=== PATIENT | male | born 1950 | race Caucasian/White ===

== ENCOUNTER → 2016-12-23 | Outpatient (CLI) | payer OTHER ==
[~2016-12-23] MED LIST: ACETAMINOPHEN W1 TA6 PO; ALBUTEROL S0.4 MG/ML PO; ASPIR-LOW81 MG PO; ASPIRIN E.C. 8181 MG PO; CALCITRATE 3151 TAB PO; DAYPRO 600600 MG PO; DAZIDOX10 MG PO; DEMADEX10 MG PO; DRISDOL50000 IU PO; FERROUS SU325 MG/TAB PO; FOLIC ACID PO; GLUCOSAMINE/CHONDROI PO; HCTZ PO; HYDROMORPHONE HC2 MG PO; HYSINGLA60 PO; KLOR-CON 1010 MEQ PO; LASIX 20MG TABL20 MG PO; LASIX 40MG TABL40 MG PO; LASIX 80MG TABL80 MG PO; LEVAQUIN; LEXAPRO 10MG10 MG PO; LOPRESSOR 225 MG/TAB PO; LOTRISONE 0.05%1 CRE TOP; METHADONE H10 MG/TAB PO; MOBIC15 MG PO; MVI PO; NASACORT AQ N16.5 GM NS; PERCOCET 325 MG1 TA3 PO; PERCR 7.5 PO; PHENERGAN 25 TA25 MG PO; PHILLIPS'311 MG PO; PREVACID 15MG15 M1 PO; PRIL40 PO; PROAIR HFA0.09 MG/AC IH; SUDAFED 12HR120 MG PO; SYNTHROID 0.0.025 MG PO; TYLENOL W/COD1 UDTAB PO; ULTRAM 50MG TAB50 MG PO; VITAMIN C500 MG PO; ZANTAC 150MG T150 MG PO; ZAROXOLYN 2.52.5 MG PO; ZAROXOLYN5 MG PO; ZYLOPRIM 300MG300 MG PO
== END ==
LOC: COL.PUL 08:00
DX: R06.02 Shortness of breath (principal); I34.0 Nonrheumatic mitral (valve) insufficiency; R94.39 Abnormal result of other cardiovascular function study

== ENCOUNTER 2017-01-08 19:16 | Inpatient (IN) | payer OTHER ==
[~2017-01-08] VITALS: Ht 185.4 cm; Wt 116.8 kg
[2017-01-08] VITALS (99 sets, daily range): BP systolic 121; BP diastolic 78; PULSE 95; TEMP 98.5; O2SAT 84–100
[~2017-01-08 19:16] MED LIST changes: -ALBUTEROL S0.4 MG/ML PO; -ASPIRIN E.C. 8181 MG PO; -CALCITRATE 3151 TAB PO; -DAYPRO 600600 MG PO; -DRISDOL50000 IU PO; -HYSINGLA60 PO; -LASIX 20MG TABL20 MG PO; -LASIX 40MG TABL40 MG PO; -LASIX 80MG TABL80 MG PO; -LEXAPRO 10MG10 MG PO; -LOPRESSOR 225 MG/TAB PO; -LOTRISONE 0.05%1 CRE TOP; -METHADONE H10 MG/TAB PO; -MOBIC15 MG PO; -PERCOCET 325 MG1 TA3 PO; -PHILLIPS'311 MG PO; -PREVACID 15MG15 M1 PO; -PRIL40 PO; -PROAIR HFA0.09 MG/AC IH; -SYNTHROID 0.0.025 MG PO; -ZANTAC 150MG T150 MG PO; -ZAROXOLYN 2.52.5 MG PO; -ZYLOPRIM 300MG300 MG PO
[2017-01-08 20:03] LABS: BASO % 0.3 % (0.0-2.0); EOS % 0.1 % (0-4.0); GRAN # 9.4 (1.4-6.5); GRAN % 79.4 % (42.2-75.2); LYMPH # 1.5 (1.2-3.4); LYMPH % 12.6 % (20.0-51.0); MEAN CELL VOLUME 90 fl (80.0-100.0); MEAN CORPUSCULAR HGB CONC 32 g/dl (33.0-37.0); MEAN PLATELET VOLUME 9.1 fl (7.4-10.4); MONO # 0.9 (0.1-0.6); MONO % 7.3 % (1.7-9.3); PLATELET COUNT 237 K/mm3 (130-400); RED BLOOD COUNT 3.26 M/mm3 (4.20-5.60); REDCELL DISTRIBUTION WIDTH-CV 16.7 % (11.5-14.5); WHITE BLOOD COUNT 11.8 K/mm3 (4.8-10.8)
[2017-01-08 20:10] LABS: HEMATOCRIT 29.2 % (42.0-52.0); HEMOGLOBIN 9.3 g/dl (13.5-18.0); MEAN CORPUSCULAR HEMOGLOBIN 29 pg (27.0-31.0)
[2017-01-08 20:15] LABS: ADJUSTED CALCIUM 9.3 mg/dL (8.4-10.2); ALBUMIN 3.4 gm/dL (3.5-5.0); BILIRUBIN,TOTAL 0.5 mg/dL (0.0-1.0); CALCIUM 8.8 mg/dL (8.4-10.2); CREATININE, serum 0.98 mg/dL (0.66-1.25); POTASSIUM 3.5 mmol/L (3.4-5.0)
[2017-01-08] MEDS ORDERED: ZYLOPRIM 300MG300 MG PO (22:23)
[2017-01-08] MEDS ORDERED: LEXAPRO 10MG10 MG PO (22:24)
[2017-01-08] MEDS ORDERED: DAYPRO 600600 MG PO (22:26)
[2017-01-08] MEDS ORDERED: LOTRISONE 0.05%1 CRE TOP (22:28)
[2017-01-08] MEDS ORDERED: DRISDOL50000 IU PO (22:29)
[2017-01-09] VITALS (589 sets, daily range): BP systolic 109–153; BP diastolic 68–86; PULSE 78–94; TEMP 97–98.5; O2SAT 46–100
[2017-01-09 00:10] LABS: HEMATOCRIT 25.5 % (42.0-52.0); HEMOGLOBIN 8.2 g/dl (13.5-18.0)
[2017-01-09 04:00] LABS: BASO % 0.3 % (0.0-2.0); EOS % 0.1 % (0-4.0); GRAN # 9.5 (1.4-6.5); GRAN % 80.9 % (42.2-75.2); LYMPH # 1.5 (1.2-3.4); LYMPH % 12.4 % (20.0-51.0); MEAN CELL VOLUME 89 fl (80.0-100.0); MEAN CORPUSCULAR HGB CONC 32 g/dl (33.0-37.0); MEAN PLATELET VOLUME 8.8 fl (7.4-10.4); MONO # 0.7 (0.1-0.6); MONO % 5.9 % (1.7-9.3); PLATELET COUNT 202 K/mm3 (130-400); RED BLOOD COUNT 2.75 M/mm3 (4.20-5.60); REDCELL DISTRIBUTION WIDTH-CV 16.7 % (11.5-14.5); WHITE BLOOD COUNT 11.7 K/mm3 (4.8-10.8)
[2017-01-09 04:01] LABS: HEMATOCRIT 24.4 % (42.0-52.0); HEMOGLOBIN 7.9 g/dl (13.5-18.0); MEAN CORPUSCULAR HEMOGLOBIN 29 pg (27.0-31.0)
[2017-01-09 04:11] LABS: CALCIUM 8.3 mg/dL (8.4-10.2); CREATININE, serum 0.97 mg/dL (0.66-1.25); POTASSIUM 3.5 mmol/L (3.4-5.0)
[2017-01-09 09:16] LABS: HEMATOCRIT 26.4 % (42.0-52.0); HEMOGLOBIN 8.4 g/dl (13.5-18.0)
[2017-01-09 14:09] LABS: HEMATOCRIT 24.1 % (42.0-52.0); HEMOGLOBIN 7.9 g/dl (13.5-18.0)
[2017-01-09 20:54] LABS: HEMATOCRIT 23.3 % (42.0-52.0); HEMOGLOBIN 7.4 g/dl (13.5-18.0)
[2017-01-10] VITALS (451 sets, daily range): BP systolic 107–145; BP diastolic 55–91; PULSE 75–92; TEMP 97–98.8; O2SAT 52–100
[2017-01-10 01:54] LABS: HEMATOCRIT 20.2 % (42.0-52.0)
[2017-01-10 01:55] LABS: HEMOGLOBIN 6.6 g/dl (13.5-18.0)
[2017-01-10 08:15] LABS: BASO % 0.6 % (0.0-2.0); EOS # 0.2 (0.0-0.7); EOS % 3.2 % (0-4.0); GRAN # 5.2 (1.4-6.5); LYMPH # 1.2 (1.2-3.4); LYMPH % 17.1 % (20.0-51.0); MEAN CELL VOLUME 90 fl (80.0-100.0); MEAN CORPUSCULAR HGB CONC 32 g/dl (33.0-37.0); MEAN PLATELET VOLUME 9.4 fl (7.4-10.4); MONO # 0.5 (0.1-0.6); MONO % 6.7 % (1.7-9.3); PLATELET COUNT 137 K/mm3 (130-400); RED BLOOD COUNT 2.66 M/mm3 (4.20-5.60); REDCELL DISTRIBUTION WIDTH-CV 16.3 % (11.5-14.5); WHITE BLOOD COUNT 7.3 K/mm3 (4.8-10.8)
[2017-01-10 08:24] LABS: ADJUSTED CALCIUM 8.6 mg/dL (8.4-10.2); ALBUMIN 2.9 gm/dL (3.5-5.0); BILIRUBIN,TOTAL 0.6 mg/dL (0.0-1.0); CALCIUM 7.7 mg/dL (8.4-10.2); CREATININE, serum 0.81 mg/dL (0.66-1.25); POTASSIUM 3.8 mmol/L (3.4-5.0); TOTAL PROTEIN 5.3 gm/dL (6.4-8.2)
[2017-01-10 08:27] LABS: HEMATOCRIT 23.8 % (42.0-52.0); HEMOGLOBIN 7.7 g/dl (13.5-18.0); MEAN CORPUSCULAR HEMOGLOBIN 29 pg (27.0-31.0)
[2017-01-10 14:37] LABS: HEMATOCRIT 18.2 % (42.0-52.0)
[2017-01-11] VITALS (720 sets, daily range): BP systolic 122–141; BP diastolic 66–87; PULSE 74–83; TEMP 97.8–98.2; O2SAT 53–100
[2017-01-11 00:02] LABS: HEMATOCRIT 26.7 % (42.0-52.0); HEMOGLOBIN 8.6 g/dl (13.5-18.0)
[2017-01-11 06:04] LABS: BASO % 0.5 % (0.0-2.0); EOS # 0.2 (0.0-0.7); EOS % 2.9 % (0-4.0); GRAN # 5.3 (1.4-6.5); GRAN % 73.2 % (42.2-75.2); LYMPH # 1.3 (1.2-3.4); LYMPH % 17.3 % (20.0-51.0); MEAN CELL VOLUME 90 fl (80.0-100.0); MEAN CORPUSCULAR HGB CONC 32 g/dl (33.0-37.0); MEAN PLATELET VOLUME 9.4 fl (7.4-10.4); MONO # 0.4 (0.1-0.6); MONO % 5.8 % (1.7-9.3); PLATELET COUNT 142 K/mm3 (130-400); RED BLOOD COUNT 2.75 M/mm3 (4.20-5.60); REDCELL DISTRIBUTION WIDTH-CV 16.8 % (11.5-14.5); WHITE BLOOD COUNT 7.3 K/mm3 (4.8-10.8)
[2017-01-11 06:12] LABS: CALCIUM 7.5 mg/dL (8.4-10.2); CREATININE, serum 0.78 mg/dL (0.66-1.25); HEMATOCRIT 24.8 % (42.0-52.0); MEAN CORPUSCULAR HEMOGLOBIN 29 pg (27.0-31.0); POTASSIUM 3.7 mmol/L (3.4-5.0)
[2017-01-11 12:49] LABS: MEAN CELL VOLUME 90 fl (80.0-100.0); MEAN CORPUSCULAR HGB CONC 32 g/dl (33.0-37.0); MEAN PLATELET VOLUME 9.2 fl (7.4-10.4); PLATELET COUNT 128 K/mm3 (130-400); RED BLOOD COUNT 2.64 M/mm3 (4.20-5.60); REDCELL DISTRIBUTION WIDTH-CV 16.6 % (11.5-14.5); WHITE BLOOD COUNT 6.6 K/mm3 (4.8-10.8)
[2017-01-11 12:53] LABS: HEMATOCRIT 23.8 % (42.0-52.0); HEMOGLOBIN 7.7 g/dl (13.5-18.0); MEAN CORPUSCULAR HEMOGLOBIN 29 pg (27.0-31.0)
[2017-01-11 17:54] LABS: MEAN CELL VOLUME 89 fl (80.0-100.0); MEAN CORPUSCULAR HGB CONC 33 g/dl (33.0-37.0); MEAN PLATELET VOLUME 9.6 fl (7.4-10.4); PLATELET COUNT 173 K/mm3 (130-400); RED BLOOD COUNT 2.99 M/mm3 (4.20-5.60); REDCELL DISTRIBUTION WIDTH-CV 16.7 % (11.5-14.5); WHITE BLOOD COUNT 8.1 K/mm3 (4.8-10.8)
[2017-01-11 17:55] LABS: HEMATOCRIT 26.7 % (42.0-52.0); HEMOGLOBIN 8.8 g/dl (13.5-18.0); MEAN CORPUSCULAR HEMOGLOBIN 29 pg (27.0-31.0)
[2017-01-12] VITALS (926 sets, daily range): BP systolic 113–146; BP diastolic 54–78; PULSE 76–99; TEMP 97.7–98.4; O2SAT 72–100
[2017-01-12 00:53] LABS: MEAN CELL VOLUME 89 fl (80.0-100.0); MEAN CORPUSCULAR HGB CONC 32 g/dl (33.0-37.0); MEAN PLATELET VOLUME 9.6 fl (7.4-10.4); PLATELET COUNT 164 K/mm3 (130-400); WHITE BLOOD COUNT 8.3 K/mm3 (4.8-10.8)
[2017-01-12 00:55] LABS: HEMATOCRIT 24.1 % (42.0-52.0); HEMOGLOBIN 7.8 g/dl (13.5-18.0); MEAN CORPUSCULAR HEMOGLOBIN 29 pg (27.0-31.0)
[2017-01-12 06:16] LABS: MEAN CELL VOLUME 91 fl (80.0-100.0); MEAN CORPUSCULAR HGB CONC 32 g/dl (33.0-37.0); MEAN PLATELET VOLUME 9.4 fl (7.4-10.4); PLATELET COUNT 152 K/mm3 (130-400); RED BLOOD COUNT 2.56 M/mm3 (4.20-5.60); REDCELL DISTRIBUTION WIDTH-CV 17.1 % (11.5-14.5); WHITE BLOOD COUNT 6.5 K/mm3 (4.8-10.8)
[2017-01-12 06:46] LABS: HEMATOCRIT 23.2 % (42.0-52.0); HEMOGLOBIN 7.4 g/dl (13.5-18.0); MEAN CORPUSCULAR HEMOGLOBIN 29 pg (27.0-31.0)
[2017-01-12 12:15] LABS: HEMATOCRIT 21.5 % (42.0-52.0); MEAN CELL VOLUME 91 fl (80.0-100.0); MEAN CORPUSCULAR HEMOGLOBIN 30 pg (27.0-31.0); MEAN CORPUSCULAR HGB CONC 33 g/dl (33.0-37.0); MEAN PLATELET VOLUME 9.7 fl (7.4-10.4); PLATELET COUNT 157 K/mm3 (130-400); RED BLOOD COUNT 2.37 M/mm3 (4.20-5.60); WHITE BLOOD COUNT 6.2 K/mm3 (4.8-10.8)
[2017-01-12 21:06] LABS: HEMATOCRIT 22.9 % (42.0-52.0); HEMOGLOBIN 7.5 g/dl (13.5-18.0); MEAN CELL VOLUME 90 fl (80.0-100.0); MEAN CORPUSCULAR HEMOGLOBIN 29 pg (27.0-31.0); MEAN CORPUSCULAR HGB CONC 33 g/dl (33.0-37.0); MEAN PLATELET VOLUME 9.8 fl (7.4-10.4); PLATELET COUNT 172 K/mm3 (130-400); RED BLOOD COUNT 2.55 M/mm3 (4.20-5.60); REDCELL DISTRIBUTION WIDTH-CV 16.6 % (11.5-14.5)
[2017-01-13] VITALS (813 sets, daily range): BP systolic 121–169; BP diastolic 65–90; PULSE 78–89; TEMP 97.8–99.4; O2SAT 44–100
[2017-01-13 01:03] LABS: MEAN CELL VOLUME 90 fl (80.0-100.0); MEAN CORPUSCULAR HGB CONC 32 g/dl (33.0-37.0); PLATELET COUNT 181 K/mm3 (130-400); RED BLOOD COUNT 2.33 M/mm3 (4.20-5.60); WHITE BLOOD COUNT 8.9 K/mm3 (4.8-10.8)
[2017-01-13 01:06] LABS: HEMOGLOBIN 6.8 g/dl (13.5-18.0); MEAN CORPUSCULAR HEMOGLOBIN 29 pg (27.0-31.0)
[2017-01-13 08:34] LABS: MEAN CELL VOLUME 91 fl (80.0-100.0); MEAN CORPUSCULAR HGB CONC 32 g/dl (33.0-37.0); MEAN PLATELET VOLUME 10.3 fl (7.4-10.4); PLATELET COUNT 147 K/mm3 (130-400); RED BLOOD COUNT 2.74 M/mm3 (4.20-5.60); REDCELL DISTRIBUTION WIDTH-CV 16.4 % (11.5-14.5); WHITE BLOOD COUNT 8.2 K/mm3 (4.8-10.8)
[2017-01-13 08:37] LABS: HEMATOCRIT 24.9 % (42.0-52.0); MEAN CORPUSCULAR HEMOGLOBIN 29 pg (27.0-31.0)
[2017-01-13 13:21] LABS: MEAN CELL VOLUME 90 fl (80.0-100.0); MEAN CORPUSCULAR HGB CONC 32 g/dl (33.0-37.0); MEAN PLATELET VOLUME 9.5 fl (7.4-10.4); PLATELET COUNT 161 K/mm3 (130-400); RED BLOOD COUNT 2.76 M/mm3 (4.20-5.60); REDCELL DISTRIBUTION WIDTH-CV 16.4 % (11.5-14.5); WHITE BLOOD COUNT 7.6 K/mm3 (4.8-10.8)
[2017-01-13 13:22] LABS: HEMATOCRIT 24.7 % (42.0-52.0); MEAN CORPUSCULAR HEMOGLOBIN 29 pg (27.0-31.0)
[2017-01-13 14:52] LABS: INR 1.1 (0.8-3.0); PROTHROMBIN TIME 12.3 SECONDS (9.7-12.8)
[2017-01-13 19:16] LABS: MEAN CELL VOLUME 91 fl (80.0-100.0); MEAN CORPUSCULAR HGB CONC 32 g/dl (33.0-37.0); MEAN PLATELET VOLUME 9.6 fl (7.4-10.4); PLATELET COUNT 180 K/mm3 (130-400); RED BLOOD COUNT 2.71 M/mm3 (4.20-5.60); REDCELL DISTRIBUTION WIDTH-CV 16.6 % (11.5-14.5); WHITE BLOOD COUNT 7.5 K/mm3 (4.8-10.8)
[2017-01-13 19:31] LABS: HEMATOCRIT 24.7 % (42.0-52.0); MEAN CORPUSCULAR HEMOGLOBIN 30 pg (27.0-31.0)
[2017-01-14] VITALS (206 sets, daily range): BP systolic 95–132; BP diastolic 53–84; PULSE 74–86; TEMP 97.4–98.1; O2SAT 65–100
[2017-01-14 05:50] LABS: MEAN CELL VOLUME 91 fl (80.0-100.0); MEAN CORPUSCULAR HGB CONC 32 g/dl (33.0-37.0); MEAN PLATELET VOLUME 9.8 fl (7.4-10.4); PLATELET COUNT 172 K/mm3 (130-400); RED BLOOD COUNT 2.53 M/mm3 (4.20-5.60); REDCELL DISTRIBUTION WIDTH-CV 16.6 % (11.5-14.5)
[2017-01-14 06:02] LABS: HEMOGLOBIN 7.3 g/dl (13.5-18.0); MEAN CORPUSCULAR HEMOGLOBIN 29 pg (27.0-31.0)
[2017-01-14 13:59] LABS: HEMATOCRIT 23.2 % (42.0-52.0); HEMOGLOBIN 7.4 g/dl (13.5-18.0)
[2017-01-14 20:17] LABS: HEMATOCRIT 24.8 % (42.0-52.0); HEMOGLOBIN 7.7 g/dl (13.5-18.0)
[2017-01-15 01:24] VITALS: BP 144/66; PULSE 85; TEMP 98.6
[2017-01-15 04:56] VITALS: BP 149/80; PULSE 83; TEMP 98.5
[2017-01-15 10:04] VITALS: BP 134/64; PULSE 77; TEMP 98
[2017-01-15 12:53] LABS: MEAN CELL VOLUME 93 fl (80.0-100.0); MEAN CORPUSCULAR HGB CONC 32 g/dl (33.0-37.0); MEAN PLATELET VOLUME 9.8 fl (7.4-10.4); PLATELET COUNT 225 K/mm3 (130-400); RED BLOOD COUNT 2.81 M/mm3 (4.20-5.60); REDCELL DISTRIBUTION WIDTH-CV 16.1 % (11.5-14.5); WHITE BLOOD COUNT 5.7 K/mm3 (4.8-10.8)
[2017-01-15 12:55] LABS: HEMOGLOBIN 8.2 g/dl (13.5-18.0); MEAN CORPUSCULAR HEMOGLOBIN 29 pg (27.0-31.0)
[2017-01-15 12:59] LABS: ADJUSTED CALCIUM 8.7 mg/dL (8.4-10.2); ALBUMIN 3.1 gm/dL (3.5-5.0); BILIRUBIN,TOTAL 0.5 mg/dL (0.0-1.0); CREATININE, serum 0.86 mg/dL (0.66-1.25); POTASSIUM 4.3 mmol/L (3.4-5.0); TOTAL PROTEIN 5.8 gm/dL (6.4-8.2)
[2017-01-15] MEDS ORDERED: DEMADEX10 MG PO (13:41)
[2017-01-15] MEDS ORDERED: METHADONE H10 MG/TAB PO (13:42)
[2017-02-18] MEDS ORDERED: DEMADEX10 MG PO (15:04)
[2017-02-18] MEDS ORDERED: PERCOCET 325 MG1 TA3 PO (15:05)
[2017-02-18] MEDS ORDERED: CALCITRATE 3151 TAB PO (15:07)
[2017-05-27] MEDS ORDERED: LASIX 20MG TABL20 MG PO (10:51)
[2017-05-27] MEDS ORDERED: PROAIR HFA0.09 MG/AC IH (11:11)
[2017-05-27] MEDS ORDERED: ALBUTEROL S0.4 MG/ML PO (11:11)
[2017-05-27] MEDS ORDERED: HYSINGLA60 PO (11:12)
[2017-05-27] MEDS ORDERED: MOBIC15 MG PO (11:13)
[2017-05-27] MEDS ORDERED: ZAROXOLYN 2.52.5 MG PO (11:15)
== END 2017-01-15 14:37 | disposition home or self-care (01) | DRG 356 ==
LOC: COL.ER 19:16 → ICU 20:31 → IMCU 20:31 → ICU 01-09 22:31 → IMCU 01-09 22:31 → JCC 01-14 18:00
PROVIDERS: Emergency Medicine; Family Medicine; Internal Medicine Cardiovascular Disease; Nurse Anesthetist, Certified Registered; Nurse Practitioner Family; Surgery
PROC: 0W3P8ZZ Control Bleeding in Gastrointestinal Tract, Via Natural or Artificial Opening Endoscopic (ICD-10-PCS; 2017-01-10)
PROC: 0W3P8ZZ Control Bleeding in Gastrointestinal Tract, Via Natural or Artificial Opening Endoscopic (ICD-10-PCS; 2017-01-12)
PROC: 0WJP4ZZ Inspection of Gastrointestinal Tract, Percutaneous Endoscopic Approach (ICD-10-PCS; principal; 2017-01-13 14:30)
DX: K25.4 Chronic or unspecified gastric ulcer with hemorrhage (principal); I50.33 Acute on chronic diastolic (congestive) heart failure; D62 Acute posthemorrhagic anemia; I50.32 Chronic diastolic (congestive) heart failure; I34.0 Nonrheumatic mitral (valve) insufficiency; Z85.820 Personal history of malignant melanoma of skin; Z87.891 Personal history of nicotine dependence; I11.0 Hypertensive heart disease with heart failure; I27.2 Other secondary pulmonary hypertension; F11.24 Opioid dependence with opioid-induced mood disorder
CPT/HCPCS: 99223-AI; 99232-AI; 99233-AI; C9113; J0171; J0330; J1940; J2060; J2250; J2270; J2405; J2704; J2765; J3010; J7030; P9016

== ENCOUNTER 2017-01-16 19:14 | Inpatient (IN) | payer OTHER ==
[~2017-01-16] VITALS: Ht 185.4 cm; Wt 123.8 kg
[2017-01-16] VITALS (116 sets, daily range): BP systolic 101–132; BP diastolic 41–96; PULSE 90–95; TEMP 98.2–100.7; O2SAT 85–100
[~2017-01-16 19:14] MED LIST changes: +DAYPRO 600600 MG PO; +DRISDOL50000 IU PO; +LEXAPRO 10MG10 MG PO; +LOTRISONE 0.05%1 CRE TOP; +METHADONE H10 MG/TAB PO; +ZYLOPRIM 300MG300 MG PO
[2017-01-16 19:47] LABS: BASO % 0.3 % (0.0-2.0); EOS # 0.1 (0.0-0.7); EOS % 0.9 % (0-4.0); GRAN % 77.1 % (42.2-75.2); LYMPH # 0.9 (1.2-3.4); LYMPH % 14.3 % (20.0-51.0); MEAN CELL VOLUME 91 fl (80.0-100.0); MEAN CORPUSCULAR HGB CONC 31 g/dl (33.0-37.0); MEAN PLATELET VOLUME 9.6 fl (7.4-10.4); MONO # 0.5 (0.1-0.6); MONO % 7.1 % (1.7-9.3); PLATELET COUNT 258 K/mm3 (130-400); RED BLOOD COUNT 2.08 M/mm3 (4.20-5.60); REDCELL DISTRIBUTION WIDTH-CV 15.4 % (11.5-14.5); WHITE BLOOD COUNT 6.5 K/mm3 (4.8-10.8)
[2017-01-16 19:51] LABS: HEMOGLOBIN 5.9 g/dl (13.5-18.0); MEAN CORPUSCULAR HEMOGLOBIN 28 pg (27.0-31.0)
[2017-01-16 19:54] LABS: ADJUSTED CALCIUM 8.8 mg/dL (8.4-10.2); ALBUMIN 2.5 gm/dL (3.5-5.0); BILIRUBIN,TOTAL 0.5 mg/dL (0.0-1.0); CALCIUM 7.6 mg/dL (8.4-10.2); CREATININE, serum 0.95 mg/dL (0.66-1.25); TOTAL PROTEIN 4.7 gm/dL (6.4-8.2)
[2017-01-17] VITALS (658 sets, daily range): BP systolic 109–154; BP diastolic 63–85; PULSE 81–101; TEMP 97.8–99.4; O2SAT 56–100
[2017-01-17 03:29] LABS: HEMATOCRIT 25.9 % (42.0-52.0); HEMOGLOBIN 8.6 g/dl (13.5-18.0)
[2017-01-17 21:56] LABS: HEMATOCRIT 22.6 % (42.0-52.0); HEMOGLOBIN 7.5 g/dl (13.5-18.0)
[2017-01-18] VITALS (12 sets, daily range): BP systolic 128–147; BP diastolic 57–71; PULSE 77–83; TEMP 98–99.4
[2017-01-18 06:19] LABS: MEAN CELL VOLUME 91 fl (80.0-100.0); MEAN CORPUSCULAR HGB CONC 32 g/dl (33.0-37.0); MEAN PLATELET VOLUME 9.4 fl (7.4-10.4); PLATELET COUNT 201 K/mm3 (130-400); REDCELL DISTRIBUTION WIDTH-CV 15.2 % (11.5-14.5); WHITE BLOOD COUNT 10.4 K/mm3 (4.8-10.8)
[2017-01-18 06:20] LABS: HEMATOCRIT 21.9 % (42.0-52.0); MEAN CORPUSCULAR HEMOGLOBIN 29 pg (27.0-31.0)
[2017-01-18 06:21] LABS: HEMOGLOBIN 6.9 g/dl (13.5-18.0)
[2017-01-18 21:29] LABS: HEMATOCRIT 24.2 % (42.0-52.0)
[2017-01-19] VITALS (7 sets, daily range): BP systolic 131–147; BP diastolic 55–77; PULSE 70–88; TEMP 97.3–98.7
[2017-01-19 09:25] LABS: MEAN CELL VOLUME 88 fl (80.0-100.0); MEAN CORPUSCULAR HGB CONC 33 g/dl (33.0-37.0); MEAN PLATELET VOLUME 9.7 fl (7.4-10.4); PLATELET COUNT 205 K/mm3 (130-400); REDCELL DISTRIBUTION WIDTH-CV 15.6 % (11.5-14.5); WHITE BLOOD COUNT 7.2 K/mm3 (4.8-10.8)
[2017-01-19 09:27] LABS: HEMATOCRIT 25.6 % (42.0-52.0); HEMOGLOBIN 8.5 g/dl (13.5-18.0); MEAN CORPUSCULAR HEMOGLOBIN 29 pg (27.0-31.0)
[2017-01-19 09:39] LABS: CALCIUM 7.4 mg/dL (8.4-10.2)
[2017-01-19 09:46] LABS: CREATININE, serum 0.84 mg/dL (0.66-1.25); POTASSIUM 3.9 mmol/L (3.4-5.0)
[2017-01-20 06:00] VITALS: BP 144/64; PULSE 72; TEMP 97.8
[2017-01-20 08:47] LABS: BASO % 0.7 % (0.0-2.0); EOS # 0.2 (0.0-0.7); EOS % 3.1 % (0-4.0); GRAN # 4.3 (1.4-6.5); GRAN % 71.1 % (42.2-75.2); LYMPH % 16.7 % (20.0-51.0); MEAN CELL VOLUME 90 fl (80.0-100.0); MEAN CORPUSCULAR HGB CONC 32 g/dl (33.0-37.0); MEAN PLATELET VOLUME 9.6 fl (7.4-10.4); MONO # 0.5 (0.1-0.6); MONO % 8.1 % (1.7-9.3); PLATELET COUNT 203 K/mm3 (130-400); RED BLOOD COUNT 2.75 M/mm3 (4.20-5.60); REDCELL DISTRIBUTION WIDTH-CV 15.4 % (11.5-14.5); WHITE BLOOD COUNT 6.1 K/mm3 (4.8-10.8)
[2017-01-20 08:50] LABS: HEMATOCRIT 24.8 % (42.0-52.0); HEMOGLOBIN 7.9 g/dl (13.5-18.0); MEAN CORPUSCULAR HEMOGLOBIN 29 pg (27.0-31.0)
[2017-01-20 09:06] LABS: CALCIUM 7.5 mg/dL (8.4-10.2); CREATININE, serum 0.94 mg/dL (0.66-1.25); POTASSIUM 3.6 mmol/L (3.4-5.0)
[2017-01-20 09:52] VITALS: BP 137/93; PULSE 80; TEMP 98.4
[2017-01-20] MEDS ORDERED: PREVACID 15MG15 M1 PO (10:31)
[2017-01-20] MEDS ORDERED: ZANTAC 150MG T150 MG PO (10:32)
[2017-01-20 12:02] LABS: HEMATOCRIT 24.4 % (42.0-52.0); HEMOGLOBIN 7.9 g/dl (13.5-18.0)
[2017-01-20 13:30] VITALS: BP 120/47; PULSE 77
[2017-02-18] MEDS ORDERED: DEMADEX10 MG PO (15:04)
[2017-02-18] MEDS ORDERED: PERCOCET 325 MG1 TA3 PO (15:05)
[2017-02-18] MEDS ORDERED: CALCITRATE 3151 TAB PO (15:07)
[2017-05-27] MEDS ORDERED: LASIX 20MG TABL20 MG PO (10:51)
[2017-05-27] MEDS ORDERED: PROAIR HFA0.09 MG/AC IH (11:11)
[2017-05-27] MEDS ORDERED: ALBUTEROL S0.4 MG/ML PO (11:11)
[2017-05-27] MEDS ORDERED: HYSINGLA60 PO (11:12)
[2017-05-27] MEDS ORDERED: MOBIC15 MG PO (11:13)
[2017-05-27] MEDS ORDERED: ZAROXOLYN 2.52.5 MG PO (11:15)
== END 2017-01-20 14:59 | disposition home or self-care (01) | DRG 327 ==
LOC: COL.ER 19:14 → ICU 21:14 → SURG 21:14
PROVIDERS: Family Medicine; Surgery
PROC: 0DQ44ZZ Repair Esophagogastric Junction, Percutaneous Endoscopic Approach (ICD-10-PCS; principal; 2017-01-17 10:00)
PROC: 0DB64ZX Excision of Stomach, Percutaneous Endoscopic Approach, Diagnostic (ICD-10-PCS; 2017-01-17 10:00)
DX: K25.0 Acute gastric ulcer with hemorrhage (principal); D62 Acute posthemorrhagic anemia; I50.32 Chronic diastolic (congestive) heart failure
CPT/HCPCS: C1751; C9113; J0694; J1100; J1170; J1644; J1940; J2270; J2405; J2704; J7030; P9016

== ENCOUNTER 2017-02-25 10:00 | Outpatient (RCR) | payer OTHER ==
[2008-08-20 07:30] VITALS: BP 158/72
[2017-02-15 11:14] VITALS: BP 130/58; PULSE 67; TEMP 98.2
[2017-02-18 13:45] VITALS: BP 149/69; PULSE 66; TEMP 99.1
[2017-02-22 10:13] VITALS: BP 143/70; PULSE 75; TEMP 97.8
[~2017-02-25] VITALS: Ht 185.4 cm; Wt 134.0 kg
[~2017-02-25 10:00] MED LIST changes: +CALCITRATE 3151 TAB PO; +PERCOCET 325 MG1 TA3 PO; +PREVACID 15MG15 M1 PO; +ZANTAC 150MG T150 MG PO
[2017-02-25 10:34] VITALS: BP 138/69; PULSE 73; TEMP 98.3
[2017-05-27] MEDS ORDERED: LASIX 20MG TABL20 MG PO (10:51)
[2017-05-27] MEDS ORDERED: ALBUTEROL S0.4 MG/ML PO (11:11)
[2017-05-27] MEDS ORDERED: PROAIR HFA0.09 MG/AC IH (11:11)
[2017-05-27] MEDS ORDERED: HYSINGLA60 PO (11:12)
[2017-05-27] MEDS ORDERED: MOBIC15 MG PO (11:13)
[2017-05-27] MEDS ORDERED: ZAROXOLYN 2.52.5 MG PO (11:15)
== END 2017-05-16 | disposition still patient (30) ==
LOC: EUO
DX: D50.0 Iron deficiency anemia secondary to blood loss (chronic) (principal); Z79.899 Other long term (current) drug therapy
CPT/HCPCS: J2916

== ENCOUNTER → 2017-05-14 | Outpatient (CLI) | payer MEDICARE, OTHER ==
[~2017-05-14] MED LIST changes: +ALBUTEROL S0.4 MG/ML PO; +ASPIRIN E.C. 8181 MG PO; +HYSINGLA60 PO; +LASIX 20MG TABL20 MG PO; +LASIX 40MG TABL40 MG PO; +LASIX 80MG TABL80 MG PO; +LOPRESSOR 225 MG/TAB PO; +MOBIC15 MG PO; +PHILLIPS'311 MG PO; +PRIL40 PO; +PROAIR HFA0.09 MG/AC IH; +SYNTHROID 0.0.025 MG PO; +ZAROXOLYN 2.52.5 MG PO
== END ==
LOC: COL.VAS 13:32
DX: I87.2 Venous insufficiency (chronic) (peripheral) (principal); R60.0 Localized edema; M79.89 Other specified soft tissue disorders

== ENCOUNTER → 2017-05-18 | Outpatient (CLI) | payer MEDICARE, OTHER | LOC: WCC 09:06 | DX: I87.313 Chronic venous hypertension (idiopathic) with ulcer of bilateral lower extremity (principal); L97.929 Non-pressure chronic ulcer of unspecified part of left lower leg with unspecified severity; L97.919 Non-pressure chronic ulcer of unspecified part of right lower leg with unspecified severity; I73.9 Peripheral vascular disease, unspecified; E66.01 Morbid (severe) obesity due to excess calories | CPT/HCPCS: 13919; 27513; A6456 ==

== ENCOUNTER 2017-05-20 12:42 | Inpatient (IN) | payer MEDICARE, OTHER ==
[2017-05-20] VITALS (392 sets, daily range): BP systolic 104–135; BP diastolic 61–84; PULSE 75–81; TEMP 97.6–98.2; O2SAT 59–100
[~2017-05-20] VITALS: Ht 185.4 cm; Wt 137.7 kg
[~2017-05-20 12:42] MED LIST changes: -ALBUTEROL S0.4 MG/ML PO; -ASPIRIN E.C. 8181 MG PO; -HYSINGLA60 PO; -LASIX 20MG TABL20 MG PO; -LASIX 40MG TABL40 MG PO; -LASIX 80MG TABL80 MG PO; -LOPRESSOR 225 MG/TAB PO; -MOBIC15 MG PO; -PHILLIPS'311 MG PO; -PRIL40 PO; -PROAIR HFA0.09 MG/AC IH; -SYNTHROID 0.0.025 MG PO; -ZAROXOLYN 2.52.5 MG PO
[2017-05-20 13:11] LABS: BASO # 0.1 (0.0-0.2); EOS # 0.2 (0.0-0.7); EOS % 2.3 % (0-4.0); GRAN # 5.5 (1.4-6.5); GRAN % 75.3 % (42.2-75.2); HEMATOCRIT 44.1 % (42.0-52.0); HEMOGLOBIN 12.6 g/dl (13.5-18.0); LYMPH # 0.9 (1.2-3.4); LYMPH % 11.8 % (20.0-51.0); MEAN CELL VOLUME 84 fl (80.0-100.0); MEAN CORPUSCULAR HEMOGLOBIN 24 pg (27.0-31.0); MEAN CORPUSCULAR HGB CONC 29 g/dl (33.0-37.0); MEAN PLATELET VOLUME 8.8 fl (7.4-10.4); MONO # 0.7 (0.1-0.6); MONO % 9.2 % (1.7-9.3); PLATELET COUNT 232 K/mm3 (130-400); RED BLOOD COUNT 5.27 M/mm3 (4.20-5.60); REDCELL DISTRIBUTION WIDTH-CV 22.4 % (11.5-14.5); WHITE BLOOD COUNT 7.3 K/mm3 (4.8-10.8)
[2017-05-20 13:21] LABS: ADJUSTED CALCIUM 8.6 mg/dL (8.4-10.2); ALBUMIN 4.4 gm/dL (3.5-5.0); CALCIUM 8.9 mg/dL (8.4-10.2); CREATININE, serum 1.26 mg/dL (0.66-1.25); MAGNESIUM 2.4 mg/dL (1.6-2.3); POTASSIUM 4.2 mmol/L (3.4-5.0); TOTAL PROTEIN 7.7 gm/dL (6.4-8.2)
[2017-05-20] MEDS ORDERED: PRIL40 PO (13:21)
[2017-05-20] MEDS ORDERED: LASIX 80MG TABL80 MG PO (13:21)
[2017-05-20 13:25] LABS: INR 1.1 (0.8-3.0); PROTHROMBIN TIME 12.1 SECONDS (9.7-12.8)
[2017-05-20 13:28] LABS: PARTIAL THROMBOPLASTIN TIME 32.1 SECONDS (26.0-37.0)
[2017-05-20 13:32] LABS: TROPONIN-I 0.021 ng/mL (0.000-0.034)
[2017-05-20] MEDS ORDERED: CALCITRATE 3151 TAB PO (16:48)
[2017-05-20] MEDS ORDERED: PHILLIPS'311 MG PO (16:49)
[2017-05-21] VITALS (764 sets, daily range): BP systolic 116–145; BP diastolic 75–87; PULSE 70–79; TEMP 97.4–98; O2SAT 63–100
[2017-05-21 04:09] LABS: CALCIUM 8.2 mg/dL (8.4-10.2); CREATININE, serum 1.34 mg/dL (0.66-1.25); MAGNESIUM 2.5 mg/dL (1.6-2.3); POTASSIUM 4.1 mmol/L (3.4-5.0)
[2017-05-21 04:20] LABS: TROPONIN-I 0.016 ng/mL (0.000-0.034)
[2017-05-21] MEDS ORDERED: LOPRESSOR 225 MG/TAB PO (13:55)
[2017-05-21] MEDS ORDERED: ASPIRIN E.C. 8181 MG PO (13:56)
[2017-05-21] MEDS ORDERED: SYNTHROID 0.0.025 MG PO (14:00)
[2017-05-21] MEDS ORDERED: LASIX 40MG TABL40 MG PO (14:08)
[2017-05-27] MEDS ORDERED: LASIX 20MG TABL20 MG PO (10:51)
[2017-05-27] MEDS ORDERED: PROAIR HFA0.09 MG/AC IH (11:11)
[2017-05-27] MEDS ORDERED: ALBUTEROL S0.4 MG/ML PO (11:11)
[2017-05-27] MEDS ORDERED: HYSINGLA60 PO (11:12)
[2017-05-27] MEDS ORDERED: MOBIC15 MG PO (11:13)
[2017-05-27] MEDS ORDERED: ZAROXOLYN 2.52.5 MG PO (11:15)
== END 2017-05-21 14:50 | disposition home or self-care (01) | DRG 310 ==
LOC: COL.ER 12:42 → ICU 14:19
PROVIDERS: Emergency Medicine; Internal Medicine
DX: I47.1 Supraventricular tachycardia (principal); I10 Essential (primary) hypertension; I44.0 Atrioventricular block, first degree; E02 Subclinical iodine-deficiency hypothyroidism; F17.210 Nicotine dependence, cigarettes, uncomplicated; Z85.820 Personal history of malignant melanoma of skin
CPT/HCPCS: 99222-AI; 99239; J1940; J7030; J7050

== ENCOUNTER → 2017-05-27 | Outpatient (CLI) | payer MEDICARE, OTHER ==
[~2017-05-27] VITALS: Ht 185.4 cm; Wt 137.4 kg
[~2017-05-27] MED LIST changes: +ALBUTEROL S0.4 MG/ML PO; +ASPIRIN E.C. 8181 MG PO; +HYSINGLA60 PO; +LASIX 20MG TABL20 MG PO; +LASIX 40MG TABL40 MG PO; +LASIX 80MG TABL80 MG PO; +LOPRESSOR 225 MG/TAB PO; +MOBIC15 MG PO; +PHILLIPS'311 MG PO; +PRIL40 PO; +PROAIR HFA0.09 MG/AC IH; +SYNTHROID 0.0.025 MG PO; +ZAROXOLYN 2.52.5 MG PO
[2017-05-27 11:06] VITALS: BP 137/80; PULSE 79
[2017-05-27 12:00] VITALS: BP 134/67; PULSE 73
[2017-05-27 12:15] VITALS: BP 112/56; PULSE 76
[2017-05-27 12:17] VITALS: BP 123/65; PULSE 75
== END ==
LOC: COL.CARD 10:37
DX: R94.31 Abnormal electrocardiogram [ECG] [EKG] (principal)
CPT/HCPCS: A9502; J2785

== ENCOUNTER 2017-05-31 13:15 | Outpatient (RCR) | payer MEDICARE, OTHER | END 2017-08-29 | LOC: WSPT | DX: I87.313 Chronic venous hypertension (idiopathic) with ulcer of bilateral lower extremity (principal); L03.115 Cellulitis of right lower limb; I73.9 Peripheral vascular disease, unspecified; R06.01 Orthopnea; G47.33 Obstructive sleep apnea (adult) (pediatric); M25.50 Pain in unspecified joint; E66.01 Morbid (severe) obesity due to excess calories | CPT/HCPCS: G8978-GP; G8979-GP ==

== ENCOUNTER → 2017-06-14 | Outpatient (CLI) | payer MEDICARE, OTHER, BC | LOC: WCC 08:43 | DX: L03.115 Cellulitis of right lower limb (principal); R60.9 Edema, unspecified; I87.313 Chronic venous hypertension (idiopathic) with ulcer of bilateral lower extremity | CPT/HCPCS: G0463 ==

== ENCOUNTER → 2017-08-26 | Outpatient (CLI) | payer MEDICARE | LOC: COL.RAD 12:58 | DX: M79.644 Pain in right finger(s) (principal); M79.641 Pain in right hand | CPT/HCPCS: J3301; Q9967 ==

== ENCOUNTER → 2017-09-16 | Outpatient (CLI) | payer MEDICARE ==
[~2017-09-16] MED LIST changes: +CALCIUM CITRATE1 TA1 PO; +MS CONTIN 330 MG/TAB PO; -PERCOCET 325 MG1 TA3 PO; +PERCOCET 325 MG1 TAB PO; -PRIL40 PO; +PRILOSEC 20MG20 MG PO
== END ==
LOC: LIGHT 11:04
DX: E88.81 Metabolic syndrome and other insulin resistance (principal); I10 Essential (primary) hypertension; E66.01 Morbid (severe) obesity due to excess calories; Z71.3 Dietary counseling and surveillance
CPT/HCPCS: G0463

== ENCOUNTER → 2017-10-05 | Outpatient (CLI) | payer MEDICARE | LOC: LIGHT 16:09 | DX: Z01.89 Encounter for other specified special examinations (principal) ==

== ENCOUNTER → 2017-10-12 | Outpatient (CLI) | payer MEDICARE | LOC: LIGHT 14:57 | DX: Z01.818 Encounter for other preprocedural examination (principal) ==

== ENCOUNTER → 2017-10-14 | Outpatient (CLI) | payer MEDICARE ==
[2017-09-16 12:21] VITALS: BP 114/60; PULSE 72
[~2017-10-14] VITALS: Ht 180.3 cm; Wt 134.9 kg
[2017-10-14 14:40] VITALS: BP 138/70; PULSE 74
== END ==
LOC: LIGHT 09-16 09:47
DX: E88.81 Metabolic syndrome and other insulin resistance (principal); I10 Essential (primary) hypertension; E66.01 Morbid (severe) obesity due to excess calories; Z68.41 Body mass index [BMI] 40.0-44.9, adult; Z71.3 Dietary counseling and surveillance
CPT/HCPCS: G0463

== ENCOUNTER → 2017-11-11 | Outpatient (CLI) | payer MEDICARE ==
[~2017-11-11] VITALS: Ht 180.3 cm; Wt 137.2 kg
[2017-11-11 15:17] VITALS: BP 140/90; PULSE 88
== END ==
LOC: LIGHT 09:36
DX: E88.81 Metabolic syndrome and other insulin resistance (principal); I10 Essential (primary) hypertension; E66.01 Morbid (severe) obesity due to excess calories; Z68.41 Body mass index [BMI] 40.0-44.9, adult; Z71.3 Dietary counseling and surveillance
CPT/HCPCS: G0463

== ENCOUNTER → 2017-12-09 | Outpatient (CLI) | payer MEDICARE | LOC: LIGHT 14:26 | DX: E88.81 Metabolic syndrome and other insulin resistance (principal); I10 Essential (primary) hypertension; E66.01 Morbid (severe) obesity due to excess calories; Z71.3 Dietary counseling and surveillance | CPT/HCPCS: G0463 ==

== ENCOUNTER → 2018-01-06 | Outpatient (CLI) | payer MEDICARE ==
[~2018-01-06] VITALS: Ht 180.3 cm; Wt 137.9 kg
[2018-01-06 15:47] VITALS: BP 130/76; PULSE 96
== END ==
LOC: LIGHT 13:52
DX: E88.81 Metabolic syndrome and other insulin resistance (principal); I10 Essential (primary) hypertension; E66.01 Morbid (severe) obesity due to excess calories; Z68.41 Body mass index [BMI] 40.0-44.9, adult; Z71.3 Dietary counseling and surveillance
CPT/HCPCS: G0463

== ENCOUNTER 2018-01-26 11:15 | Outpatient (RCR) | payer MEDICARE | END 2018-02-02 | LOC: WSPT | DX: M17.0 Bilateral primary osteoarthritis of knee (principal) | CPT/HCPCS: G8978-GP; G8979-GP ==

== ENCOUNTER 2018-02-09 12:00 | Outpatient (RCR) | payer MEDICARE | END 2018-04-13 11:11 | disposition home or self-care (01) | LOC: WSPT 12:00 | DX: M17.0 Bilateral primary osteoarthritis of knee (principal) | CPT/HCPCS: G8979-GP; G8980-GP ==

== ENCOUNTER → 2018-02-10 | Outpatient (CLI) | payer MEDICARE ==
[~2018-02-10] VITALS: Ht 180.3 cm; Wt 135.9 kg
[2018-02-10 16:30] VITALS: BP 122/84; PULSE 76
== END ==
LOC: LIGHT 14:18
DX: E88.81 Metabolic syndrome and other insulin resistance (principal); I10 Essential (primary) hypertension; E66.01 Morbid (severe) obesity due to excess calories; Z68.41 Body mass index [BMI] 40.0-44.9, adult; Z71.3 Dietary counseling and surveillance
CPT/HCPCS: G0463

== ENCOUNTER → 2018-03-17 | Outpatient (CLI) | payer MEDICARE ==
[~2018-03-17] VITALS: Ht 180.3 cm; Wt 134.9 kg
== END ==
LOC: LIGHT 14:54
DX: E88.81 Metabolic syndrome and other insulin resistance (principal); I10 Essential (primary) hypertension; E66.01 Morbid (severe) obesity due to excess calories; Z68.41 Body mass index [BMI] 40.0-44.9, adult; Z71.3 Dietary counseling and surveillance
CPT/HCPCS: G0463

== ENCOUNTER → 2018-05-19 | Outpatient (CLI) | payer MEDICARE ==
[~2018-05-19] VITALS: Ht 180.3 cm; Wt 135.4 kg
[2018-05-19 16:39] VITALS: BP 132/84; PULSE 60
== END ==
LOC: LIGHT 04-14 13:33
DX: E88.81 Metabolic syndrome and other insulin resistance (principal); I10 Essential (primary) hypertension; R73.01 Impaired fasting glucose; E66.01 Morbid (severe) obesity due to excess calories; Z68.41 Body mass index [BMI] 40.0-44.9, adult; Z71.3 Dietary counseling and surveillance
CPT/HCPCS: G0463

== ENCOUNTER → 2018-08-25 | Outpatient (CLI) | payer MEDICARE ==
[~2018-08-25] VITALS: Ht 180.3 cm; Wt 131.3 kg
== END ==
LOC: LIGHT 06-23 11:39
DX: E88.81 Metabolic syndrome and other insulin resistance (principal); I10 Essential (primary) hypertension; R73.01 Impaired fasting glucose; E66.01 Morbid (severe) obesity due to excess calories; Z71.3 Dietary counseling and surveillance
CPT/HCPCS: G0463

== ENCOUNTER 2018-09-18 14:40 | Emergency (ER) | payer MEDICARE ==
[2008-08-20 07:30] VITALS: BP 158/72
[~2018-09-18] VITALS: Ht 182.9 cm; Wt 129.5 kg
[2018-09-18 14:43] VITALS: BP 131/76; TEMP 97.8
[2018-09-18] MEDS ORDERED: CLEOCIN HCL300 MG PO (16:13)
[2018-09-18 16:23] VITALS: PULSE 82
== END 2018-09-18 16:28 | disposition home or self-care (01) ==
LOC: COL.ER 14:40
DX: K02.9 Dental caries, unspecified (principal); I50.9 Heart failure, unspecified; I10 Essential (primary) hypertension; E03.9 Hypothyroidism, unspecified; F17.210 Nicotine dependence, cigarettes, uncomplicated; Z79.82 Long term (current) use of aspirin

== ENCOUNTER → 2018-09-29 | Outpatient (CLI) | payer MEDICARE ==
[~2018-09-29] VITALS: Ht 335.3 cm; Wt 123.4 kg
[~2018-09-29] MED LIST changes: +CLEOCIN HCL300 MG PO
[2018-09-29 15:51] VITALS: BP 116/76; PULSE 84
== END ==
LOC: LIGHT 09:23
DX: E88.81 Metabolic syndrome and other insulin resistance (principal); I10 Essential (primary) hypertension; R73.01 Impaired fasting glucose; E66.01 Morbid (severe) obesity due to excess calories; Z68.41 Body mass index [BMI] 40.0-44.9, adult; Z71.3 Dietary counseling and surveillance
CPT/HCPCS: G0463

== ENCOUNTER → 2018-11-02 | Outpatient (CLI) | payer MEDICARE ==
[~2018-11-02] MED LIST changes: +GLUCOPHAGE1000 MG; +LIPITOR 10MG10 MG; +OZEMPIC0.25 MG/0. SQ; +ZESTRIL2.5 MG
== END ==
LOC: SUN.DIA 13:57
DX: E11.9 Type 2 diabetes mellitus without complications (principal); E78.5 Hyperlipidemia, unspecified; I10 Essential (primary) hypertension; E66.9 Obesity, unspecified; I73.9 Peripheral vascular disease, unspecified; F17.210 Nicotine dependence, cigarettes, uncomplicated
CPT/HCPCS: G0108

== ENCOUNTER → 2018-11-03 | Outpatient (CLI) | payer MEDICARE ==
[~2018-11-03] VITALS: Ht 175.3 cm; Wt 123.2 kg
[2018-11-03 16:04] VITALS: BP 116/70; PULSE 72
== END ==
LOC: LIGHT 13:29
DX: E88.81 Metabolic syndrome and other insulin resistance (principal); I10 Essential (primary) hypertension; R73.01 Impaired fasting glucose; E66.01 Morbid (severe) obesity due to excess calories; Z68.41 Body mass index [BMI] 40.0-44.9, adult; Z71.3 Dietary counseling and surveillance
CPT/HCPCS: G0463

== ENCOUNTER → 2018-11-15 | Outpatient (CLI) | payer MEDICARE | LOC: SUN.DIA 13:54 | DX: E11.9 Type 2 diabetes mellitus without complications (principal); E78.5 Hyperlipidemia, unspecified; I10 Essential (primary) hypertension; E66.9 Obesity, unspecified; I73.9 Peripheral vascular disease, unspecified ==

== ENCOUNTER → 2018-12-08 | Outpatient (CLI) | payer MEDICARE ==
[~2018-12-08] VITALS: Ht 180.3 cm; Wt 119.3 kg
[2018-12-08 16:27] VITALS: BP 124/80; PULSE 80
== END ==
LOC: LIGHT 12-01 13:34
DX: E88.81 Metabolic syndrome and other insulin resistance (principal); I10 Essential (primary) hypertension; R73.01 Impaired fasting glucose; E66.01 Morbid (severe) obesity due to excess calories; Z68.36 Body mass index [BMI] 36.0-36.9, adult; Z71.3 Dietary counseling and surveillance
CPT/HCPCS: G0463

== ENCOUNTER → 2018-12-14 | Outpatient (CLI) | payer MEDICARE | LOC: SUN.DIA 15:21 | DX: E11.9 Type 2 diabetes mellitus without complications (principal); E78.5 Hyperlipidemia, unspecified; I10 Essential (primary) hypertension; E66.9 Obesity, unspecified; F17.210 Nicotine dependence, cigarettes, uncomplicated | CPT/HCPCS: G0109 ==

== ENCOUNTER → 2018-12-29 | Outpatient (CLI) | payer MEDICARE ==
[~2018-12-29] VITALS: Ht 180.3 cm; Wt 118.6 kg
[2018-12-29 15:45] VITALS: BP 98/66; PULSE 72
== END ==
LOC: LIGHT 11:06
DX: E88.81 Metabolic syndrome and other insulin resistance (principal); I10 Essential (primary) hypertension; R73.01 Impaired fasting glucose; E66.01 Morbid (severe) obesity due to excess calories; Z68.36 Body mass index [BMI] 36.0-36.9, adult; Z71.3 Dietary counseling and surveillance
CPT/HCPCS: G0463

== ENCOUNTER → 2019-01-11 | Outpatient (CLI) | payer MEDICARE | LOC: SUN.DIA 12-21 15:39 | DX: E11.9 Type 2 diabetes mellitus without complications (principal); E78.5 Hyperlipidemia, unspecified; I10 Essential (primary) hypertension; E66.9 Obesity, unspecified ==

== ENCOUNTER → 2019-01-26 | Outpatient (CLI) | payer MEDICARE ==
[~2019-01-26] VITALS: Ht 180.3 cm; Wt 119.1 kg
[2019-01-26 16:41] VITALS: BP 119/70; PULSE 76
== END ==
LOC: LIGHT 15:16
DX: E88.81 Metabolic syndrome and other insulin resistance (principal); I10 Essential (primary) hypertension; R73.01 Impaired fasting glucose; E66.01 Morbid (severe) obesity due to excess calories; Z68.36 Body mass index [BMI] 36.0-36.9, adult; Z71.3 Dietary counseling and surveillance
CPT/HCPCS: G0463

== ENCOUNTER → 2019-02-15 | Outpatient (CLI) | payer MEDICARE | LOC: SUN.DIA 09:52 | DX: E11.9 Type 2 diabetes mellitus without complications (principal); I10 Essential (primary) hypertension; E03.9 Hypothyroidism, unspecified; E66.9 Obesity, unspecified; I73.9 Peripheral vascular disease, unspecified | CPT/HCPCS: G0109 ==

== ENCOUNTER → 2019-03-01 | Outpatient (CLI) | payer MEDICARE | LOC: SUN.DIA 10:38 | DX: E11.9 Type 2 diabetes mellitus without complications (principal); E78.5 Hyperlipidemia, unspecified; I10 Essential (primary) hypertension; E66.9 Obesity, unspecified | CPT/HCPCS: G0109 ==

== ENCOUNTER → 2019-03-02 | Outpatient (CLI) | payer MEDICARE ==
[~2019-03-02] VITALS: Ht 180.3 cm; Wt 119.5 kg
[2019-03-02 16:56] VITALS: BP 106/64; PULSE 96
== END ==
LOC: LIGHT 02-09 16:17
DX: E88.81 Metabolic syndrome and other insulin resistance (principal); I10 Essential (primary) hypertension; R73.01 Impaired fasting glucose; E66.01 Morbid (severe) obesity due to excess calories; Z68.36 Body mass index [BMI] 36.0-36.9, adult; Z71.3 Dietary counseling and surveillance
CPT/HCPCS: G0463

== ENCOUNTER → 2019-03-08 | Outpatient (CLI) | payer MEDICARE | LOC: SUN.DIA 11:12 → DIA.ED 18:00 | DX: E11.9 Type 2 diabetes mellitus without complications (principal); E78.5 Hyperlipidemia, unspecified; I10 Essential (primary) hypertension; E66.9 Obesity, unspecified | CPT/HCPCS: G0109 ==

== ENCOUNTER → 2019-04-13 | Outpatient (CLI) | payer MEDICARE ==
[~2019-04-13] VITALS: Ht 180.3 cm; Wt 118.4 kg
[~2019-04-13] MED LIST changes: -GLUCOPHAGE1000 MG; +GLUCOPHAGE1000 MG PO
[2019-04-13 16:56] VITALS: BP 94/64; PULSE 100
== END ==
LOC: LIGHT 10:53
DX: E66.01 Morbid (severe) obesity due to excess calories (principal); Z68.41 Body mass index [BMI] 40.0-44.9, adult; Z71.3 Dietary counseling and surveillance
CPT/HCPCS: G0463

== ENCOUNTER 2019-05-22 17:12 | Emergency (ER) | payer MEDICARE ==
[2008-08-20 07:30] VITALS: BP 158/72
[~2019-05-22] VITALS: Ht 180.3 cm; Wt 118.2 kg
[2019-05-22 17:33] VITALS: TEMP 98.1
[2019-05-22] MEDS ORDERED: ZITHROMAX 250M250 MG PO (19:39)
[2019-05-22] MEDS ORDERED: PREDNISONE20 MG PO (19:39)
[2019-05-22 20:21] VITALS: BP 115/80; PULSE 93
== END 2019-05-22 20:22 | disposition home or self-care (01) ==
LOC: COL.ER 17:12
DX: J45.909 Unspecified asthma, uncomplicated (principal); F17.210 Nicotine dependence, cigarettes, uncomplicated; E78.00 Pure hypercholesterolemia, unspecified; E11.9 Type 2 diabetes mellitus without complications; I10 Essential (primary) hypertension; Z79.82 Long term (current) use of aspirin; Z79.84 Long term (current) use of oral hypoglycemic drugs
CPT/HCPCS: J7512

== ENCOUNTER → 2019-06-01 | Outpatient (CLI) | payer MEDICARE ==
[~2019-06-01] VITALS: Ht 180.3 cm; Wt 118.2 kg
[~2019-06-01] MED LIST changes: +PREDNISONE20 MG PO; +ZITHROMAX 250M250 MG PO
[2019-06-01 16:39] VITALS: BP 94/50; PULSE 72
== END ==
LOC: LIGHT 10:39
DX: E88.81 Metabolic syndrome and other insulin resistance (principal); I10 Essential (primary) hypertension; R73.01 Impaired fasting glucose; E66.01 Morbid (severe) obesity due to excess calories; Z68.36 Body mass index [BMI] 36.0-36.9, adult; Z71.3 Dietary counseling and surveillance
CPT/HCPCS: G0463

== ENCOUNTER → 2019-08-03 | Outpatient (CLI) | payer MEDICARE ==
[~2019-08-03] VITALS: Ht 180.3 cm; Wt 119.5 kg
[2019-08-03 10:56] VITALS: BP 114/72; PULSE 80
== END ==
LOC: LIGHT 06-29 14:48
DX: E88.81 Metabolic syndrome and other insulin resistance (principal); I10 Essential (primary) hypertension; R73.01 Impaired fasting glucose; E66.01 Morbid (severe) obesity due to excess calories; Z68.36 Body mass index [BMI] 36.0-36.9, adult; Z71.3 Dietary counseling and surveillance
CPT/HCPCS: G0463

== ENCOUNTER → 2019-10-19 | Outpatient (CLI) | payer MEDICARE ==
[~2019-10-19] VITALS: Ht 180.3 cm; Wt 122.0 kg
[~2019-10-19] MED LIST changes: +ZOFRAN ODT4 MG PO
[2019-10-19 16:17] VITALS: BP 110/62; PULSE 80
== END ==
LOC: LIGHT 10-12 13:28
DX: Z68.37 Body mass index [BMI] 37.0-37.9, adult (principal); E88.81 Metabolic syndrome and other insulin resistance; I10 Essential (primary) hypertension; R73.01 Impaired fasting glucose
CPT/HCPCS: G0463

== ENCOUNTER 2019-11-07 00:55 | Emergency (ER) | payer MEDICARE ==
[2008-08-20 07:30] VITALS: BP 158/72
[~2019-11-07] VITALS: Ht 180.3 cm; Wt 118.2 kg
[~2019-11-07 00:55] MED LIST changes: -ZOFRAN ODT4 MG PO
[2019-11-07 01:07] VITALS: TEMP 97.8
[2019-11-07 02:13] LABS: BASO % 0.5 % (0.0-2.0); EOS % 0.3 % (0-4.0); GRAN % 76.4 % (42.2-75.2); HEMATOCRIT 44.3 % (42.0-52.0); HEMOGLOBIN 14.5 g/dl (13.5-18.0); LYMPH # 0.8 (1.2-3.4); LYMPH % 12.5 % (20.0-51.0); MEAN CELL VOLUME 89 fl (80.0-100.0); MEAN CORPUSCULAR HEMOGLOBIN 29 pg (27.0-31.0); MEAN CORPUSCULAR HGB CONC 33 g/dl (33.0-37.0); MEAN PLATELET VOLUME 8.2 fl (7.4-10.4); MONO # 0.7 (0.1-0.6); PLATELET COUNT 137 K/mm3 (130-400); RED BLOOD COUNT 4.99 M/mm3 (4.20-5.60); REDCELL DISTRIBUTION WIDTH-CV 15.5 % (11.5-14.5)
[2019-11-07 02:25] LABS: ALANINE AMINOTRANSFERASE 26 U/L (21-72); ALBUMIN 3.7 gm/dL (3.5-5.0); ALKALINE PHOSPHATASE 80 U/L (50-136); ANION GAP 7 mmol/L (7-16); AST,SGOT 26 U/L (15-37); BILIRUBIN,TOTAL 0.5 mg/dL (0.0-1.0); BLOOD UREA NITROGEN 24 mg/dL (9-20); C-REACTIVE PROTEIN 5.4 mg/dL (0.0-0.9); CALCIUM 7.8 mg/dL (8.4-10.2); CARBON DIOXIDE 36 mmol/L (22-30); CHLORIDE 95 mmol/L (98-107); CREATININE, serum 1.12 (0.66-1.25); GLUCOSE 125 mg/dL (74-106); LIPASE 104 U/L (23-300); MAGNESIUM 2.3 mg/dL (1.6-2.3); POTASSIUM 3.6 mmol/L (3.4-5.0); SODIUM 138 mmol/L (137-145); TOTAL PROTEIN 6.8 gm/dL (6.4-8.2)
[2019-11-07 02:34] LABS: TROPONIN-I < 0.012 ng/mL (0.000-0.035)
[2019-11-07] MEDS ORDERED: ZOFRAN ODT4 MG PO (04:06)
[2019-11-07 04:11] LABS: COLLECTION METHOD CLEAN CATCH
[2019-11-07 04:30] LABS: MUCOUS Present /lpf; PH 5 (5-8); SQUAMOUS EPITHELIAL None Seen /hpf; URINE APPEARANCE Hazy; URINE BACTERIA None Seen /hpf; URINE BILIRUBIN Negative (NEGATIVE); URINE BLOOD 1+ (NEGATIVE); URINE COLOR Yellow; URINE GLUCOSE Negative (NEGATIVE); URINE KETONE Negative (NEGATIVE); URINE LEUKOCYTE ESTERASE Negative (NEGATIVE); URINE NITRATE Negative (NEGATIVE); URINE PROTEIN(semi-quant) Negative (NEGATIVE); URINE RBC 0-2 /hpf; URINE UROBILINOGEN Negative (NEGATIVE)
[2019-11-07 04:37] VITALS: BP 110/70; PULSE 89
== END 2019-11-07 04:37 | disposition home or self-care (01) ==
LOC: COL.ER 00:55
PROVIDERS: Emergency Medicine
DX: E86.0 Dehydration (principal); R55 Syncope and collapse; E11.9 Type 2 diabetes mellitus without complications; I10 Essential (primary) hypertension; J44.9 Chronic obstructive pulmonary disease, unspecified; M10.9 Gout, unspecified; F17.210 Nicotine dependence, cigarettes, uncomplicated; Z79.82 Long term (current) use of aspirin; Z79.84 Long term (current) use of oral hypoglycemic drugs
CPT/HCPCS: C9113; J2405; J7030

== ENCOUNTER → 2019-11-23 | Outpatient (CLI) | payer MEDICARE ==
[~2019-11-23] VITALS: Ht 180.3 cm; Wt 119.7 kg
[~2019-11-23] MED LIST changes: +ZOFRAN ODT4 MG PO
[2019-11-23 15:54] VITALS: BP 106/72; PULSE 88
== END ==
LOC: LIGHT
DX: Z68.36 Body mass index [BMI] 36.0-36.9, adult (principal); E88.81 Metabolic syndrome and other insulin resistance; I10 Essential (primary) hypertension; R73.01 Impaired fasting glucose
CPT/HCPCS: G0463

== ENCOUNTER → 2020-03-21 | Outpatient (CLI) | payer MEDICARE ==
[~2020-03-21] VITALS: Ht 180.3 cm; Wt 113.6 kg
[~2020-03-21] MED LIST changes: -ZESTRIL2.5 MG; +ZESTRIL2.5 MG PO
[2020-03-21 15:07] VITALS: BP 124/70; PULSE 84
== END ==
LOC: LIGHT 14:26
DX: E66.8 Other obesity (principal); Z68.34 Body mass index [BMI] 34.0-34.9, adult; E88.81 Metabolic syndrome and other insulin resistance; I10 Essential (primary) hypertension; R73.01 Impaired fasting glucose
CPT/HCPCS: G0463

== ENCOUNTER → 2020-05-02 | Outpatient (CLI) | payer MEDICARE ==
[~2020-05-02] VITALS: Ht 180.3 cm; Wt 108.9 kg
[2020-05-02 15:56] VITALS: BP 100/70; PULSE 88
== END ==
LOC: LIGHT 15:12
DX: E66.8 Other obesity (principal); Z68.33 Body mass index [BMI] 33.0-33.9, adult; E88.81 Metabolic syndrome and other insulin resistance; I10 Essential (primary) hypertension; R73.01 Impaired fasting glucose
CPT/HCPCS: G0463

== ENCOUNTER → 2020-07-04 | Outpatient (CLI) | payer MEDICARE ==
[~2020-07-04] VITALS: Ht 180.3 cm; Wt 103.6 kg
[2020-07-04 16:36] VITALS: BP 106/60; PULSE 72
== END ==
LOC: LIGHT 08:54
DX: E66.8 Other obesity (principal); Z68.31 Body mass index [BMI] 31.0-31.9, adult; E88.81 Metabolic syndrome and other insulin resistance; I10 Essential (primary) hypertension; R73.01 Impaired fasting glucose
CPT/HCPCS: G0463